=== PATIENT | female | born 1960 | race Caucasian/White ===

== ENCOUNTER 2017-03-08 09:08 | Day surgery (SDC) | payer OTHER ==
[~2017-03-08] VITALS: Ht 160 cm; Wt 58.9 kg
[2017-03-08 10:05] VITALS: Ht 160 cm; Wt 58.9 kg
[2017-03-08 10:53] VITALS: BP 134/67; PULSE 60; RESP 22
[2017-03-08] MEDS ORDERED: MIDAZOLAM 1 MG/ML 2 ML INJ ONE ×2 (11:33)
[2017-03-08 11:35] VITALS: BP 104/55; RESP 20
--- NOTE | 2017-03-08 11:52 | GILP ---
DATE OF PROCEDURE: NAME OF PROCEDURE: Colonoscopy. SURGEON: Maria Del Carmen Harris MD PREOPERATIVE DIAGNOSIS: Screening colonoscopy. POSTOPERATIVE DIAGNOSES: 1. Colonoscopy all the way to the cecum. 2. Internal hemorrhoids. 3. No colon neoplasm was identified. INDICATION FOR THE PROCEDURE: Ms. Sara Chan is a 56-year-old female patient who was noted to have positive occult blood in stool. The patient never had screening colonoscopy. The procedure and possible complications are well explained to the patient, she understood and conse nted to the procedure. DESCRIPTION OF PROCEDURE: Under the influence of fentanyl and Versed, the colonoscope was carefully introduced in the rectum and under direct vision, it was advanced all the way to the cecum. FINDINGS: The patient had internal hemorrhoids. No colitis or neoplasm was identified. She tolerated the procedure very well and there were no complication from the procedure. At the end of the procedures, she was awake with stable vital signs and she was discharged home to the care of her family. IMPRESSION: 1. Colonoscopy all the way to the cecum. 2. Internal hemorrhoids. 3. No colon neoplasm was identified. PLAN: Next screening colonoscopy in 10 years. Dictated By: MARIA DEL CARMEN BLEVINS/YAS Conf#: [id number] DID#: [id number] CC: MARIA DEL CARMEN HARRIS MD;*EndCC*
[2017-03-08] MEDS ORDERED: FENTAnyl 50 MCG/ML VIAL ONE (13:38)
--- NOTE | 2017-03-10 14:21 | CONS ---
DATE OF ADMISSION: 03/08/2017 DATE OF CONSULTATION: TYPE OF CONSULTATION: Preoperative Gastroenterology I thank you very much for this kind referral. HISTORY OF PRESENT ILLNESS: Ms. Sara Chan is a 56-year-old female patient who has been refer red to me for further evaluation of positive occult blood in stool. The patient has also noticed a change in the bowel habit with constipation. There is no past history of colon neoplasm. The patie nt never had screening colonoscopy. Her appetite has been good, and she is not losing any weight. She does not have any upper abdominal pain, nausea, or vomiting. There is no history of peptic ulce r disease. She is not taking any nonsteroidal anti-inflammatory agents. There is no history of gal lstones. She does not have any fever, chills, or jaundice. There is no history of liver disease. She is not a hypertensive or diabetic. She does not have any heart disease or lung problem. There is no history of kidney disease. SOCIAL HISTORY: She is a nonsmoker. She does not abuse alcohol. FAMILY HISTORY: Negative for gastrointestinal tract neoplasm. ALLERGIES: THERE IS NO HISTORY OF SIGNIFICANT DRUG ALLERGY. MEDICATIONS: Colace. PHYSICAL EXAMINATION: GENERAL: She is 5 feet 3 inches tall, and she weighs 136 pounds. HEART: Examination of the heart reveals normal first and second heart sounds. LUNGS: Clear. ABDOMEN: Soft without any distention. Liver and spleen are not palpable. There are no masses. Th ere is no focal tenderness. Normal bowel sounds are heard. CENTRAL NERVOUS SYSTEM: Does not reveal any focal neurological deficit. IMPRESSION: 1. Positive occult blood in stool. 2. Change in the bowel habit with constipation. 3. The patient is on Colace. 4. The patient never had screening colonoscopy. PLAN: Screening colonoscopy. The procedure and possible complications were well explained to the patient. She understands and co nsents to the procedure. I thank you once again. With warmest personal regards, Dictated By: MARIA DEL CARMEN BLEVINS/YAS Conf#: [id number] DID#: [id number]
== END 2017-03-09 08:36 | disposition home or self-care (01) ==
LOC: GIL 09:08
PROVIDERS: ATTEND Internal Medicine Gastroenterology
DX: Z12.11 Encounter for screening for malignant neoplasm of colon (principal); K64.8 Other hemorrhoids
CPT/HCPCS: 45378; J2250; J3010